=== PATIENT | female | born 1945 | race Caucasian/White ===

== ENCOUNTER 2019-12-19 20:48 | Inpatient (IN) | payer MEDICARE ==
[~2019-12-19] VITALS: Ht 167.6 cm; Wt 49.7 kg
[2019-12-19] MEDS ORDERED: ALBUTEROL2.5 MG/3 M INH (21:01)
[2019-12-19] MEDS ORDERED: PACERONE100 MG PO (21:02)
[2019-12-19] MEDS ORDERED: VALIUM10 MG PO (21:02)
[2019-12-19] MEDS ORDERED: FUROSEMIDE20 MG PO (21:02)
[2019-12-19] MEDS ORDERED: CARDIZEM60 MG PO (21:02)
[2019-12-19] MEDS ORDERED: PROTONIX40 MG PO (21:03)
[2019-12-19] MEDS ORDERED: DONEPEZIL HCL5 MG PO (21:03)
[2019-12-19] MEDS ORDERED: PEPCID40 MG PO (21:04)
[2019-12-19] MEDS ORDERED: PLAVIX75 MG PO (21:04)
[2019-12-19] MEDS ORDERED: RANEXA500 MG PO (21:04)
[2019-12-19] MEDS ORDERED: LIPITOR40 MG PO (21:04)
[2019-12-19] MEDS ORDERED: ULTRAM50 MG PO (21:05)
[2019-12-19 21:53] LABS: BASOPHILS 0.2 % (0-2); EOSINOPHILS 1.6 % (0-7); HEMATOCRIT 37.7 % (36.0-48.0); HEMOGLOBIN 12.2 g/dL (12-16); IMMATURE GRANULOCYTES 0.2 % (0-5); LYMPHOCYTES 8.1 % (15-50); MCH 30.7 pg (26.0-34.0); MCHC 32.4 g/dL (31.0-37.0); MEAN PLATELET VOLUME 10.2 fL (7.4-10.4); MONOCYTES 6.1 % (2-11); NEUTROPHILS 83.8 % (40-80); PLATELET COUNT 214 10x3/uL (130-400); RBC 3.97 10x6/uL (4.00-5.40); RDW 17.2 % (11.5-14.5); WBC 12.9 10x3/uL (4.8-10.8)
[2019-12-19 22:05] LABS: CALC OSMOLALITY 302 mosm/kg (275-300); CALCIUM 8.9 mg/dL (8.5-10.1); CARBON DIOXIDE 36.3 mmol/L (21.0-32.0); CHLORIDE - SERUM 104 mmol/L (98-107); GLUCOSE 99 mg/dL (74-106); SODIUM 148 mmol/L (136-145); UREA NITROGEN 37 mg/dL (7-18); eGFR NON AFRICAN AMERICAN 12 mL/min (90-120)
[2019-12-19 22:21] LABS: ALBUMIN 3.2 g/dL (3.4-5.0); ALKALINE PHOSPHATASE 74 U/L (30-120); ALT (SGPT) 15 U/L (10-68); BILIRUBIN - TOTAL 0.41 mg/dL (0.2-1.3); CKMB 1.2 U/L (0.0-3.6); CREATINE KINASE 79 UL (21-215); LIPASE 94 U/L (73-393); MAGNESIUM - SERUM 2.2 mg/dL (1.8-2.4); PROTEIN - SERUM 7.4 g/dL (6.4-8.2); THYROID STIMULATING HORMONE 2.41 uIU/mL (0.36-3.74)
[2019-12-19 22:22] LABS: TROPONIN-I < 0.017 ng/mL (0.000-0.060)
[2019-12-19 23:00] VITALS: BP 119/65
[2019-12-19 23:39] LABS: INR 0.86 (0.85-1.17); PROTIME 11.7 SECONDS (11.6-15.0)
[2019-12-19 23:52] LABS: APTT 22.1 SECONDS (22.8-39.4)
[2019-12-20 00:18] LABS: GLUCOSE NEGATIVE (NEGATIVE); KETONE NEGATIVE (NEGATIVE); NITRITE NEGATIVE (NEGATIVE); UROBILINOGEN NORMAL (NORMAL)
[2019-12-20 00:19] LABS: BILIRUBIN NEGATIVE (NEGATIVE)
[2019-12-20 00:21] LABS: BACTERIA MODERATE /hpf (NEGATIVE); EPITHELIAL CELLS 0-5 /hpf (0-5); HYALINE CAST 0-5 /lpf (NONE SEEN); RED CELLS - URINE 0-5 /hpf (0-5); WHITE CELLS - URINE 0-5 /hpf (NEGATIVE); YEAST <1+ /hpf (NONE SEEN)
[2019-12-20 00:29] LABS: UDS - AMPHET NEGATIVE QUAL (NEGATIVE); UDS - BARB NEGATIVE QUAL (NEGATIVE); UDS - BENZO POSITIVE QUAL (NEGATIVE); UDS - COCAINE NEGATIVE QUAL (NEGATIVE); UDS - OPIATE POSITIVE QUAL (NEGATIVE); UDS - PCP NEGATIVE QUAL (NEGATIVE); UDS - THC NEGATIVE QUAL (NEGATIVE)
--- NOTE | 2019-12-20 01:05 | NUR ---
ADMITTED BY WHEELCHAIT TO BED LOW AND LOCKED AND CALL LIGHT PROVIDED IV TO TKO
[2019-12-20 03:45] VITALS: BP 131/60
[2019-12-20 06:56] LABS: BASOPHILS 0.1 % (0-2); EOSINOPHILS 0.1 % (0-7); HEMATOCRIT 34.5 % (36.0-48.0); HEMOGLOBIN 10.8 g/dL (12-16); IMMATURE GRANULOCYTES 0.3 % (0-5); MCH 29.9 pg (26.0-34.0); MCHC 31.3 g/dL (31.0-37.0); MCV 95.6 fL (80.0-100.0); MONOCYTES 0.7 % (2-11); NEUTROPHILS 95.8 % (40-80); PLATELET COUNT 179 10x3/uL (130-400); RBC 3.61 10x6/uL (4.00-5.40); RDW 17.2 % (11.5-14.5); WBC 11.7 10x3/uL (4.8-10.8)
--- NOTE | 2019-12-20 07:00 | NUR ---
RECEIVED REPORT. ASSUMED CARE OF PATIENT. CALL LIGHT WITHIN REACH. PATIENT RESTING IN BED WITH EYES CLOSED, EASILY AROUSED. RESP EVEN AND UNLABORED. FMAILY AT BEDSIDE WITH EYES CLOSED. IV FLUIDS INFUSING ORDERED. NO DISTRESS. SR ON TELE, RATE 64.
[2019-12-20 07:09] LABS: ALBUMIN 2.6 g/dL (3.4-5.0); BILIRUBIN - TOTAL 0.31 mg/dL (0.2-1.3); CARBON DIOXIDE 35.3 mmol/L (21.0-32.0); CREATININE - SERUM 3.5 mg/dL (0.6-1.3); MAGNESIUM - SERUM 2.2 mg/dL (1.8-2.4); PHOSPHOROUS 5.9 mg/dL (2.5-4.9); PROTEIN - SERUM 6.2 g/dL (6.4-8.2)
[2019-12-20 07:14] LABS: ANION GAP 8.7 mmol/L (8-16)
[2019-12-20 09:31] VITALS: BP 110/56
--- NOTE | 2019-12-20 09:45 | NUR ---
PATIENT ASSISTED TO RESTROOM AND BACK TO BED. AMBULATED WITH ONE PERSON ASSIST. NO DISTRESS. CALL LIGHT WITHIN REACH. DAUGHTER AT BEDSIDE.
[2019-12-20 11:26] LABS: % SATURATION 18 % (15-55); IRON 41 ug/dl (35-150); TOTAL IRON BIND CAPACITY 227 ug/dl (260-445); UNSAT IRON BIND CAPACITY 186 ug/dl (150-375)
--- NOTE | 2019-12-20 11:46 | NUR ---
RT AT BEDSIDE FOR ABGs AT THIS TIME. NO DISTRESS.
[2019-12-20 13:26] VITALS: Ht 167.6 cm; Wt 49.7 kg
[2019-12-20 13:43] VITALS: BP 123/57
--- NOTE | 2019-12-20 14:35 | NUR ---
SPEECH AT BEDSIDE TO EVAL PATIENT.
--- NOTE | 2019-12-20 19:45 | NUR ---
ASSISTED UP TO RESTROOM PT WAS UNSTEADY ON FEET AND HAD POOR POSTURE BED LOW AND LOCKED CALL LIGHT IS WITH FAMILY
[2019-12-20 20:39] VITALS: BP 102/52
--- NOTE | 2019-12-20 22:57 | NUR ---
PT BEGIN SLAPPING ME WHEN I TRIED TO GIVE SOLUMEDROL IV ALSO SPITING OUT MEDS FAMILY SAID SHE GETS CONFUSED AND COMBATIVE IN THE HOSPITAL
[2019-12-21] VITALS: BP 147/66
--- NOTE | 2019-12-21 01:11 | NUR ---
PT PULLED IV OUT CATH INTACT AND GOT AGRESSIVE AND COMBATIVE WHEN I TRIED TO STOP BLEEDING AND CLEAN PT PT STATED YOU NEED TO GET MAD SOMETIMES I AM NOT ATTEMPTING A NEW SITE WHILE PT IS COMBATIVE
--- NOTE | 2019-12-21 01:41 | NUR ---
I have reviewed this patient and I concur with the Shift Assessment completed by the Licensed Practical Nurse today this shift.
--- NOTE | 2019-12-21 02:09 | NUR ---
PT NOW HAS REMOVED TELEMETRY AND TOSSED IT FAMILY IS REQUESTING A VALIUM BRITTANY BAKER NOTIFIED
[2019-12-21 06:48] LABS: BASOPHILS 0 % (0-2); EOSINOPHILS 0 % (0-7); HEMATOCRIT 33.6 % (36.0-48.0); HEMOGLOBIN 10.7 g/dL (12-16); IMMATURE GRANULOCYTES 0.2 % (0-5); LYMPHOCYTES 4.5 % (15-50); MCH 29.8 pg (26.0-34.0); MCHC 31.8 g/dL (31.0-37.0); MEAN PLATELET VOLUME 10.7 fL (7.4-10.4); MONOCYTES 3.4 % (2-11); NEUTROPHILS 91.9 % (40-80); PLATELET COUNT 186 10x3/uL (130-400); RBC 3.59 10x6/uL (4.00-5.40); RDW 16.8 % (11.5-14.5); WBC 9.1 10x3/uL (4.8-10.8)
[2019-12-21 07:15] LABS: MCV 93.6 fL (80.0-100.0)
[2019-12-21 07:25] LABS: ANION GAP 10.5 mmol/L (8-16); CARBON DIOXIDE 33.8 mmol/L (21.0-32.0); CREATININE - SERUM 3.2 mg/dL (0.6-1.3)
[2019-12-21 07:30] LABS: PHOSPHOROUS 3.7 mg/dL (2.5-4.9); POTASSIUM - SERUM 3.3 mmol/L (3.5-5.1)
--- NOTE | 2019-12-21 07:45 | NUR ---
AM ROUNDS COMPLETED. INTRODUCED MYSELF TO PT PRIMARY RN FOR TODAYS SHIFT. PT IS VERY CONFUSED. PT THINKS SHE IS IN [place] WHICH SHE DID JUST MOVE TO [place] THIS WEEK. HOWEVER DISORIENTED TO TIME AND SITUATION WELL. PT ALSO HAVING HALLUCINATIONS AND NOT SEEING CLEARLY. DAUGHTER AT BEDSIDE AND STATES SHE NORMALLY IS A&O X4 BUT JUST RECENTLY BECAME CONFUSED. PT APPARENTLY PULLED OFF TELEMETRY AND PIV LAST NIGHT AND IS REFUSING CARE. PT CURRENTLY NPO FOR XRAY BUT AFTERWARDS I WILL TRY TO GIVE HER ALL OF HER MORNING MEDICATIONS. RR NONLABORED AND VSS. NO IMMEDIATE NEEDS AT THIS TIME. CL IN REACH. WILL CTM.
[2019-12-21 08:00] VITALS: BP 140/72
--- NOTE | 2019-12-21 10:04 | NUR ---
PT LEAVING FOR XR UPPER GI VIA W/C. NO CURRENT NEEDS.
--- NOTE | 2019-12-21 11:03 | NUR ---
PT BACK FROM XRAY AND SITTING UP IN BED RESTING QUIETLY. RR NONLABORED WITH NC @3L IN PLACE. PT IS VERY SKEPTICAL AND NOT WANTING TO BE AT HOSPITAL OR FOLLOW COMMANDS. HOWEVER I WAS ABLE TO TALK PT INTO TAKING HER HEART MEDICATIONS. PT SWALLOWED WITHOUT ANY DIFFICULTIES, BIG PILLS HAD TO BE BROKE IN HALF. PT TOOK ONE BITE OF CEREAL AND THEN STATED "IM DONE, IM READY TO LEAVE" WILL TRY TO GET PT TO COOPERATE BUT ALLOW HER TO REFUSE SO SHE DOESNT GET MORE WORKED UP. NO IMMEDIATE NEEDS AT THIS TIME. CL IN REACH, BED IN LOWEST, SIDE RAILS X2. WILL CTM.
--- NOTE | 2019-12-21 11:14 | NUR ---
PT UP AMBULATING WITH THERAPY. SLOW STEADY GAIT WITH WALKER AND MIN ASSIST.
[2019-12-21 12:00] VITALS: BP 137/88
--- NOTE | 2019-12-21 12:31 | NUR ---
20 VENANCIO PIV INSERTED TO R.FA X1 STICK. PT IS BEING VERY KIND AND COOPERATIVE CURRENTLY. PT STILL CONFUSED BUT AT LEAST WORKING WITH US. PT TRYING TO EAT SOME LUNCH. NO CURRENT NEEDS. WILL CTM.
--- NOTE | 2019-12-21 18:30 | NUR ---
SPUTUM AND STOOL SPECIMEN NOT COLLECTED PT WAS UNABLE TO PROVIDE.
--- NOTE | 2019-12-21 19:15 | NUR ---
REPORT RECEIVED, WILL CONTINUE POC. PATIENT IS RESTING WITH EYES CLOSED. FAMILY AT BEDSIDE. NO S/S OF DISTRESS OBSERVED, RR EVEN AND UNLABORED ON 3L O2 VIA NC. NO NEEDS EXPRESSED AT THIS TIME. CL IN REACH, BED LOCKED AND LOWERED. WILL CTM.
[2019-12-21 20:00] VITALS: BP 116/61
--- NOTE | 2019-12-21 20:30 | NUR ---
BODY FORMER ASSISTED PATIENT TO BATHROOM, PULL UP CHANGED AND ASSISTED BACK TO BED.
--- NOTE | 2019-12-21 20:33 | NUR ---
OT NOTE: PT COMPLETED BED MOB TASKS WITH SBA. PT REQUIRED CUES FOR INCREASED PARTICIPATION. [id number] THANK YOU,DESTINEE HUDDLESTON
[2019-12-22] VITALS: BP 117/51
--- NOTE | 2019-12-22 00:03 | NUR ---
PATIENT ATTEMPTED TO PULL IV OUT SEVERAL TIMES AND BREAK HER ALLERGY BANDS. COMPROMISED TO REMOVE ONE IF SHE'D LEAVE HER IV ALONE. IT'S WORKED OF YET. PATIENT ALSO C/O OF DIARRHEA AND CONVINCED WE'RE TRYING TO "KILL" HER. ASSURED PATIENT THAT WE'RE HER TO DO THE OPPOSITE. FAMILY MEMEBER AT BEDSIDE HELPING KEEP PATIENT CALM. PROCERIC EDDY PER ORDERS.
--- NOTE | 2019-12-22 03:01 | NUR ---
PATIENT VERY AGITATED. PATTING ME DOWN AND TRYING TO TAKE THINGS OUT OF MY POCKETS. STILL CLAIMING WE'RE TRYING TO KILL HER. SISTER AT BEDSIDE SLEEPING. CHARGE NURSE TONY CAME IN TO ASSIST WITH CALMING PATIENT DOWN. PATIENT BACK IN BED. SUSPECT PIV WONT LAST TOO MUCH LONGER.
--- NOTE | 2019-12-22 03:38 | NUR ---
I have reviewed this patient and I concur with the Shift Assessment completed by the Licensed Practical Nurse today this shift.
[2019-12-22 04:00] VITALS: BP 120/64
--- NOTE | 2019-12-22 04:27 | NUR ---
PATIENT TOOK OFF O2 AND DROPPED INTO THE 70S, PERSUADED HER TO PUT IT BACK ON ON O2 CAME BACK UP WNL. PATIENT VERY ARGUMENTATIVE.
[2019-12-22 05:55] LABS: ANION GAP 9.2 mmol/L (8-16); CALCIUM 8.5 mg/dL (8.5-10.1); CARBON DIOXIDE 33.7 mmol/L (21.0-32.0); CREATININE - SERUM 2.5 mg/dL (0.6-1.3); MAGNESIUM - SERUM 2.2 mg/dL (1.8-2.4); PHOSPHOROUS 3.1 mg/dL (2.5-4.9)
[2019-12-22 05:56] LABS: POTASSIUM - SERUM 3.9 mmol/L (3.5-5.1)
[2019-12-22 05:59] LABS: BASOPHILS 0 % (0-2); EOSINOPHILS 0 % (0-7); HEMATOCRIT 34.5 % (36.0-48.0); HEMOGLOBIN 10.9 g/dL (12-16); IMMATURE GRANULOCYTES 0.2 % (0-5); LYMPHOCYTES 3.2 % (15-50); MCH 29.8 pg (26.0-34.0); MCHC 31.6 g/dL (31.0-37.0); MCV 94.3 fL (80.0-100.0); MEAN PLATELET VOLUME 11.3 fL (7.4-10.4); MONOCYTES 3.3 % (2-11); NEUTROPHILS 93.3 % (40-80); PLATELET COUNT 193 10x3/uL (130-400); RBC 3.66 10x6/uL (4.00-5.40); WBC 10.8 10x3/uL (4.8-10.8)
[2019-12-22 08:57] VITALS: BP 122/60
--- NOTE | 2019-12-22 11:42 | NUR ---
PT SITTING UP IN BED ALERT AND ORIENTED TO SELF. ALTAF BED ALARM IN PLACE. PT TEARFUL AND STATES SHE THINKS SHE IS BEING POISNED. FAMILY AT BEDSIDE. VSS. NO S/S OF DISTRESS. BED LOW CALL LIGHT WITHIN REACH. WILL CONTINUE TYO MONITOR
[2019-12-22 12:02] VITALS: BP 121/59
--- NOTE | 2019-12-22 14:49 | EC ---
PATIENT:MICHAEL ESPAÑA DATE OF SERVICE: 12/19/19 SEX: F MEDICAL RECORD: [id number] DATE OF : [birth year] LOCATION:D. D.211 AGE OF PATIENT: 74 ADMISSION DATE: 12/19/19 REFERRING PHYSICIAN: INTERPRETING PHYSICIAN: DAVID FARFAN MD ECHOCARDIOGRAM REPORT ECHO CHARGES 4 ECHO COMPLETE Date: 12/21/19 CLINICAL DIAGNOSIS: CHF ECHOCARDIOGRAPHIC MEASUREMENTS (adult normal given) AC root (d.<3.7cm) 2.2 cm LV Septum d (<1.2 cm> cm Valve Excursion 1.6 cm LV Septum (systole) cm Left Atria (s.<4.0cm> 2.7 cm LVPW d(<1.2cm) cm RV (d.<2.3cm) 2.7 cm LVPW (sytole) cm LV diastole(<5.6CM) cm MV E-F(>70mm/sec) cm LV systole cm LVOT Diameter 1.6 cm MV exc.(>10mm) cm Est.ejection fraction (50-75%) % DOPPLER: LVIT cm/sec A 69 cm/sec E 70 cm/sec LA cm/sec RVSP 24.9 mmHg LVOT 90 cm/sec AOP1/2T m/s Asc. Ao 144 cm/sec RVOT 87 cm/sec RA cm/sec PA 91 cm/sec AV Gradient Peak 8.3 mmHg AV Mean 3.5 mmHg AV Area 1.5 cm MV Gradient Peak 4.9 mmHg MV Mean 2.2 mmHg MV Area cm COMMENTS: Military Communications Specialist: Emilio SYLWIA SHEILA Release Manager: 1 Dr. Pereira TAPE# PACS Pericardial Effusion N DATE OF SERVICE: Adequate 2D, color flow imaging, spectral Doppler, and M-Mode Grossly, no LVH. LV internal dimension is normal. Wall motion is normal. EF is greater than or equal to 55%. Aortic valve is tricuspid. No evidence of stenosis by Doppler interrogation. Left atrium is normal. Mitral valve shows no prolapse. Mild MR. Right-sided chambers are grossly normal. Trace TR. TRANSINT:[id number] Voice Confirmation ID: [id number] DOCUMENT ID: [id number] ECHOCARDIOGRAM REPORT [id number] STACIEMICHAEL DYSON DAVID FARFAN MD at 1449 CC: [id number] DICTATION DATE: 12/21/19 1445 AGRICULTURAL ECONOMIST: 12/21/19 1511 ADM IN [facility] [address] [id number]
--- NOTE | 2019-12-22 17:00 | NUR ---
OT NOTE: PT EXTREMELY CONFUSED, AGITATED, AND PARANOID TODAY. PT OOB AMB IN ROOM WITH BLANKETS AROUND FEET AND ALMOST FALLING BEFORE THERAPIST GOT HER INTO WC TO SIT DOWN. PT ATTEMPTING TO SWING AT THERAPIST AND STATING THAT SHE HAS CALLED THE [employer] CREW. UNABLE TO EDUCATE PT REGARDING SAFETY, SHE IS TOO CONFUSED AT THIS TIME. ATTEMPTED TO PERFORM ADLS BUT PT REFUSING EVERYTHING. ATTEMPTED TO REDIRECT BUT SHE REMAINS AGITATED. BULMARO MILLER, OTR/L [phone]
--- NOTE | 2019-12-22 17:07 | NUR ---
OT NOTE: UPON ENTERING PT UP WANDERING AROUND ROOM. FELIPE ASSISTED PT BACK TO BED. PT REQUIRED SBA AND MOD VERBAL CUES FOR TASK [id number]. PT WASHED HAND AND FEET WITH SET UP. PT IS CONFUSED AND LACKS INSIGHT FOR SAFETY AWARENESS. NURSING AWARE. [phone] THANK YOU,DESTINEE HUDDLESTON
--- NOTE | 2019-12-22 18:09 | MORECARE ---
CASE MANAGEMENT DISCHARGE SUMMARY PATIENT: MICHAEL ESPAÑA UNIT: [id number] ADM DATE: 12/19/19 AGE: 74 : [birth year] SEX: F ROOM/BED: D.9213 AUTHOR: ELMO,DOC PHYSICIAN: REFERRING PHYSICIAN: MARIA DOLORES BARROSO MD DATE OF SERVICE: 12/22/19 Discharge Plan Patient Name: MICHAEL ESPAÑA Facility: [facility]:[place] : 1945 Planned Disposition: Inpatient Psych Facility Anticipated Discharge Date: 12/22/19 Discharge Date: Expected LOS: 3 Initial Reviewer: [email or web address] Initial Review Date: 12/22/2019 Generated: 12/22/19 7:08 pm Comments DCP- Discharge Planning Updated by [email or web address]: Issa Goldman on 12/22/19 5:[address] Patient Name: MICHAEL ESPAÑA Admission Status: ER Accout number: [id number] Admission Date: 12-19-2019 : 1945 Admission Diagnosis: Attending: MARIA DOLORES BARROSO Current LOS: 3 Anticipated DC Date: 12-22-2019 Planned Disposition: Inpatient Psych Facility Primary Insurance: MEDICARE A & B PLANNED EXTERNAL PROVIDER: [facility] Discharge Planning Comments: CM MET WITH PT'S DAUGHTER, RENETTA LEBLANC AT NURSES STATION; PT'S NURSE REPORTS PT TO BE UNCOOPERATIVE AND COMBATIVE. PT LIVING AT HOME DEPENDENTLY WITH ADULT DAUGHTER WHO ASSIST WITH MEDICATIONS, PT IS INDEPENDENT WITH ALL OTHER CARE AT HOME. PT HAS BEDSIDE COMMODE, NEBULIZER, HOME AND PORTABLE OXGYEN FROM OUT OF STATE PROVIDER IN [place]. PT HAS NO OUTSIDE SERVICES ASSISTING IN THE HOME. CM DISCUSSED AVAILABILITY OF HOME HEALTH, REHAB SERVICES AND MEDICAL EQUIPMENT WELL HALFWAY; PT'S DAUGHTER REPORTS PT IS COMBATIVE AND THIS IS NOT USUAL FOR PT. THEY ARE IN AGREEMENT WITH ADMISSION TO HALFWAY AND UNDERSTAND THIS TO BE A LOCKED INPATIENT PSYCHIATRIC UNIT. IMPORTANT MESSAGE FROM MEDICARE PROVIDED AND EXPLAINED. FAMILY HANDED OFF BY CM TO BEDSIDE NURSE. PT ACCEPTED AND ADMITTED TO HALFWAY AT [place]. Rivet Hole Machine Operator: Issa Goldman DCPIA - Discharge Planning Initial Assessment Updated by [email or web address]: Issa Goldman on 12/22/19 6:02 pm * Is the patient Alert and Oriented? Yes * How many steps to enter\exit or inside your home? NONE * PCP NONE * Pharmacy NONE * Preadmission Environment Home with Family * ADLs Partial Dependent * Partial ADLs (Assistance needed) Medication Management * Equipment Bedside Commode Nebulizer Other * Other Equipment HOME AND PORTABLE OXYGEN - OUT OF [facility] PROVIDER IN [place] * List name and contact numbers for known caregivers / representatives who currently or will assist patient after discharge: RENETTA LEBLANC, DTR, * Verbal permission to speak to the caregivers and representatives has been obtained from the patient. N/A * Community resources currently utilized None * Please name any agencies selected above. NONE * Additional services required to return to the preadmission environment? No * Can the patient safely return to the preadmission environment? Yes * Has this patient been hospitalized within the prior 30 days at any hospital? Yes Coverage Notice Reviewer: [email or web address] Parvin Goldman Notice Issued Date-Time: 12/22/2019 16:30 Notice Type: IM Discharge Notice Notice Delivered To: Family Member Relationship to Patient: Daughter Stem Dryer Maintainer Name: RENETTA LEBLANC Delivery Method: HAND - Hand Delivered Analy Days: Prior Verbal Notification: Recipient Understood Notice: Yes Recipient Signature: Yes Med Rec Note Co-signed by Attending: Coverage Notice Comment: Patient Name: MICHAEL ESPAÑA Page [phone] at 1809 All edits/amendments must be made on the electronic document DICTATION DATE: 12/22/191807 WELDER APPRENTICE GAS: ISREAL 12/22/191807 RPT#: [id number] DC DATE: STATUS: ADM IN [facility] [address] [place] [address] END OF REPORT
--- NOTE | 2019-12-22 18:16 | NUR ---
PT DC'D TO ASSISTED WITH IV DC'D. PT ALERT BUT CONFUSED X4. NO S/S OF DISTRESS AT THIS TIME. VSS.
== END 2019-12-22 18:19 | disposition short-term general hospital (02) | DRG 190 ==
LOC: D.ER 20:48 → D.M2 23:54
PROVIDERS: Family Medicine; ADMIT Internal Medicine Nephrology; ATTEND Internal Medicine Nephrology
DX: J44.1 Chronic obstructive pulmonary disease with (acute) exacerbation (principal); J96.22 Acute and chronic respiratory failure with hypercapnia; G92 Toxic encephalopathy; J96.21 Acute and chronic respiratory failure with hypoxia; N17.9 Acute kidney failure, unspecified; E87.0 Hyperosmolality and hypernatremia; N39.0 Urinary tract infection, site not specified; E46 Unspecified protein-calorie malnutrition; Z68.1 Body mass index [BMI] 19.9 or less, adult; D64.9 Anemia, unspecified; I10 Essential (primary) hypertension; E78.5 Hyperlipidemia, unspecified; I48.91 Unspecified atrial fibrillation; I25.10 Atherosclerotic heart disease of native coronary artery without angina pectoris

== ENCOUNTER 2019-12-22 18:28 | Inpatient (IN) | payer MEDICARE ==
[~2019-12-22] VITALS: Ht 167.6 cm; Wt 47.2 kg
[~2019-12-22 18:28] MED LIST: ALBUTEROL2.5 MG/3 M INH; CARDIZEM60 MG PO; DONEPEZIL HCL5 MG PO; FUROSEMIDE20 MG PO; LIPITOR40 MG PO; PACERONE100 MG PO; PEPCID40 MG PO; PLAVIX75 MG PO; PROTONIX40 MG PO; RANEXA500 MG PO; ULTRAM50 MG PO; VALIUM10 MG PO
--- NOTE | 2019-12-23 00:34 | NUR ---
PATIENT ARRIVED AT 18:15, CODE WORD IS '0484', CODE STATUS IS DNR. PATIENT IS AMBULATORY, O2 AT 2 LITERS VIA NC, PATIENT CAME FROM MED II, PATIENT IS CONFUSED AND ARGUMENTIVE WITH STAFF, HALLUCINATIONS SEEING CHILDREN, PHYSICIAN AND FAMILY AWARE OF ARRIVAL. WILL CONTINUE TO MONITOR.
[2019-12-23 02:03] VITALS: BP 139/71; BMI 16.8
[2019-12-23 06:21] LABS: BASOPHILS 0 % (0-2); EOSINOPHILS 0 % (0-7); HEMATOCRIT 31.6 % (36.0-48.0); HEMOGLOBIN 10.1 g/dL (12-16); IMMATURE GRANULOCYTES 0.3 % (0-5); LYMPHOCYTES 6.2 % (15-50); MCV 93.8 fL (80.0-100.0); MEAN PLATELET VOLUME 10.6 fL (7.4-10.4); MONOCYTES 10.4 % (2-11); NEUTROPHILS 83.1 % (40-80); PLATELET COUNT 172 10x3/uL (130-400); RBC 3.37 10x6/uL (4.00-5.40); RDW 16.8 % (11.5-14.5); WBC 10.5 10x3/uL (4.8-10.8)
[2019-12-23 07:06] LABS: ALBUMIN 2.7 g/dL (3.4-5.0); ANION GAP 7.2 mmol/L (8-16); BILIRUBIN - TOTAL 0.31 mg/dL (0.2-1.3); CALCIUM 8.2 mg/dL (8.5-10.1); CARBON DIOXIDE 33.6 mmol/L (21.0-32.0); CHOL - HDL RATIO 2.3 ratio (2.3-4.1); LDL-HDL RATIO 0.9 ratio (1.5-3.5); POTASSIUM - SERUM 3.8 mmol/L (3.5-5.1); PROTEIN - SERUM 5.7 g/dL (6.4-8.2); THYROID STIMULATING HORMONE 1.56 uIU/mL (0.36-3.74)
--- NOTE | 2019-12-23 10:28 | NUR ---
The patient is awake she is oriented to person, she has poor insight into her situation. She has not shown any hallucinations or aggression this am. She did not sleep well last night and she did not want to get up this am. Provide prescribed meds. The patient is compliant with her meds this am. Monitor her behaviors. Continue POC.
[2019-12-23 13:14] VITALS: Ht 167.6 cm; Wt 47.2 kg
[2019-12-23 13:22] LABS: BACTERIA FEW /hpf (NEGATIVE); BILIRUBIN NEGATIVE (NEGATIVE); EPITHELIAL CELLS 0-5 /hpf (0-5); GLUCOSE NEGATIVE (NEGATIVE); KETONE SMALL mg/dL (NEGATIVE); NITRITE NEGATIVE (NEGATIVE); RED CELLS - URINE 0-5 /hpf (0-5); SPECIFIC GRAVITY 1.005 (1.005-1.020); UROBILINOGEN NORMAL (NORMAL); WHITE CELLS - URINE OCC /hpf (NEGATIVE); YEAST >1+ /hpf (NONE SEEN)
--- NOTE | 2019-12-23 15:50 | NUR ---
SW DISCUSSED UNIT ORIENTATION AND PT'S BEHAVIORS WITH PT'S DTR, RENETTA. RENETTA WANTED TO PULL PT FROM THE UNIT STATING SHE WAS UNCOMFORTABLE NOT BEING ABLE TO SEE HER MOM WHEN SHE WANTS TO. SW DISCUSSED DEMENTIA, POSSIBLE CONTRIBUTIONS TO PT'S SYMPTOMS, AND ANSWERED ANY QUESTIONS ASKED. BY THE END OF THE CONVERSATION RENETTA AGREED TO KEEP PT ON UNIT AND RE EVALUATE SITUATION THURSDAY.
--- NOTE | 2019-12-23 15:56 | NUR ---
PT C/O OF NAUSEA. NURSE Zoe MAC ADMINISTERED ZOFRAN [address] ORDER. PT REFUSED TO EAT LUNCH PT DID NOT C/O OF NAUSEA AT THAT TIME. ENSURE GIVEN A SUPPLEMENT.
[2019-12-23 20:06] VITALS: BP 121/61
--- NOTE | 2019-12-24 00:44 | NUR ---
B.) PT IS ALERT AND ORIENTED TO SELF AND SITUATION. SHE IS RECEIVED IN THE DAYROOM. SHE HAS HER HEAD COVERED WITH A BLANKET. SHE USES O2 VIA NC AT 2L. SHE IS CALM AND COOPERATIVE WITH STAFF. STATES THAT SHE IS PARANOID THAT SHE WILL NOT HAVE CLOTHES FOR TOMORROW. I.) PROVIDED PM MEDICATIONS. REDIRECT OFTEN. R.) COMPLIANT WITH ALL MEDICATIONS. EASY TO REDIRECT. P.) WILL CONTINUE TO MONITOR.
[2019-12-24 05:09] LABS: RAPID PLASMA REAGIN Non Reactive (Non Reactive)
--- NOTE | 2019-12-24 13:53 | PSY ---
PATIENT NAME:MAYRA ESPAÑA MEDICAL RECORD: [id number] : 49 LOCATION:[facility] ADMISSION DATE: 12/22/19 ACCOUNT: [id number] PSYCHIATRIC EVALUATION DATE OF EVALUATION: 12/23/19 IDENTIFYING DATA: Ms. Mayra España is a 74-year-old female who appears about her stated age. She was admitted to half-way from [facility] unit. CHIEF COMPLAINT: The patient was confused and agitated, delusional and aggressive. HISTORY OF PRESENT ILLNESS: She is a 74-year-old female that was living at home with her daughter who is her 24-hour caregiver who became increasingly combative and increasingly confused and appeared to have hallucinations and was delusional. The patient had been admitted to the medical unit with a complaint of pneumonia and abdominal pain. She was admitted to the ER. During her hospital stay on the medical unit, she has been delusional, agitated, and aggressive. She was cursing and threatening to staff and had been increasingly agitated and aggressive with her daughter at home. PAST MEDICAL HISTORY: Fyzbr-pl-[id number] respiratory failure with hypoxia, COPD. She also has had normocytic anemia, hypertension, hyperlipidemia, atrial fib. She has CAD status post stent placement and moderate malnutrition. PAST PSYCHIATRIC HISTORY: The patient is a poor historian, unable to identify. FAMILY HISTORY: Unknown. ALLERGIES: INCLUDE PENICILLIN, PHENOBARBITAL, PROMETHAZINE, AND CHLOROPROMETHAZINE. MEDICATIONS: Include Zofran, folic acid, vitamin D, Xopenex p.r.n., Pulmicort, Vibramycin, Pepcid, Plavix, Cordarone, Protonix, Lasix, Valium, Ranexa, Cardizem, Lipitor, and Aricept. SOCIAL HISTORY: The patient appears to have relocated here from [place]. She is living with her daughter in her daughter's home and her daughter is her 24-hour caregiver. Daughter reports that the patient has had a history of alcohol abuse for several years, ranging from 1-2 beers to 7-8 beers per day depending on her mood. On 11/14/2019 was reported to be her last drink. The patient has been for 20+ years. She has 1 child. 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 It is reported that prior to surgery, she had some confusion, but it has been exasperated since the surgery per the daughter. MENTAL STATUS EXAMINATION: GENERAL: The patient is alert and oriented. She is sitting in a chair and she is easily agitated. She is oriented to person, in and out with place and time and situation. Her speech is soft, low tone, low volume but her mood is labile. Her associations are loose. Her eye contact was good. Her judgment is impaired. Her focus and concentration are distracted. Her mood is depressed and anxious and easily agitated. Her affect is flat narrow in range. Her anxiety is moderate. The patient has a poor memory for both recent and remote events. The patient does not appear to be attending to any visual or auditory hallucinations. Her judgment and insight are poor. ASSESSMENT: AXIS I: Neurocognitive disorder, major depression, alcohol use disorder, generalized anxiety disorder. AXIS II: Personality disorder deferred. AXIS III: GERD. Include COPD, UTI, normocytic anemia, vitamin D deficiency, hyperlipidemia, coronary artery disease, atrial fibrillation. CVA, status post coronary artery stent placement, hypertension, vascular dementia, chronic kidney disease. AXIS IV: Stresses include readjustment family, social, and environmental. PLAN: She was admitted yesterday 12/22/2019 to the unit for a comprehensive medical, psychological, and social evaluation. She will be treated with a medication base to help with her mood, thought, and behaviors. We will prepare the patient for discharge with the goal to decrease her agitation, impulsivity, and stabilize her mood. Dictated By: Yasmin Xavier APN I have interviewed/examined the above patient and agree with these documented findings. TRANSINT:[id number] Voice Confirmation ID: [id number] DOCUMENT ID: [id number] Dictated By: YASMIN XAVIER I have interviewed/examined the above patient and agree with these documented findings. VLAD CREPSO MD at 1658 at 1353 CC: [id number] DICTATION DATE: 12/23/19 1759 WIRELESS TECHNICIAN: 12/23/[address] [facility] [address] [place] [address]
--- NOTE | 2019-12-24 16:00 | NUR ---
The patient was looking at one of the female patient's and telling her she was going to "Whip her butt." She is making statements that she wants to fight with the other patient. The other patient said "I don't even know you." The patient said "I oughtta beat your ass, we've known each other for years." Removed the patient away from view if the one she was yelling at.
--- NOTE | 2019-12-24 16:07 | NUR ---
The patient is awake and she is upset. She said she wants to go home. Explained to her that ok she is able. She would not talk to me, she let me assess her and then she said for me to get away she is mad and she would not say why. She took her oxygen off and she refuses to put it back on. Provide prescribed meds. The patient is compliant with meds. Continue POC.
--- NOTE | 2019-12-24 16:35 | NUR ---
The patient is crying and upset she talked to her daughter and asked her to take her home. The daughter said "Ok." Yasmin Xavier APN discharged the patient AMA to home. Belongings sent with the patient. The patient is discharged off of [facility].
--- NOTE | 2019-12-25 16:58 | PN ---
PATIENT:MICHAEL ESPAÑA MEDICAL RECORD: [id number] LOCATION:J[facility]I [facility] ADMISSION DATE: 12/22/19 PROGRESS NOTE DATE OF SERVICE: 12/24/2019 SUBJECTIVE: Case was reviewed with staff. The patient is sitting quietly in a chair and she states that she does not want to talk. She does not feel too agitated, but she can get very mad. The patient also reports it seems like she has been here forever. OBJECTIVE: The patient has been noncompliant with her oxygen. The patient also has not been eating. She did sleep 6.25 hours last night. Her general appearance is slightly disheveled. Her orientation, she is alert to person, disoriented to time and situation. Her speech is soft, low tone, low volume. Her associations are loose. Her eye contact is fair. Her insight is impaired. Her mood is depressed. Her affect is flat and narrow in range. Her anxiety is mild to moderate. The patient has problems with memory for both recent and remote events. The patient does not appear to be attending to visual, auditory hallucinations. Judgment and insight, patient is impulsive. ASSESSMENT: No change. PLAN: Treatment plan was reviewed. Goals were reviewed. We will continue to monitor the patient's dietary intake. We will also monitor her sleep and her level of confusion and her mood stability. Goal will be to also keep the patient safe. Dictated By: Yasmin Xavier APN I have interviewed/examined the above patient and agree with these documented findings. TRANSINT:[id number] Voice Confirmation ID: [id number] DOCUMENT ID: [id number] VLAD CRESPO MD at 1658 at 1717 CC: [id number] DICTATION DATE: 12/24/19 1444 FILAMENT CUTTER: 12/24/19 2211 DIS IN 12/24/19 [facility] [address] [place] [address]
--- NOTE | 2019-12-25 16:58 | CN ---
PATIENT NAME:MICHAEL ESPAÑA MEDICAL RECORD: [id number] : 49 LOCATION:[id number] ADMIT DATE: 12/22/19 ACCOUNT: [id number] CONSULTING PHYSICIAN: VLAD CRESPO MD REFERRING PHYSICIAN: VLAD CRESPO MD DATE OF CONSULTATION: 12/22/2019 IDENTIFYING DATA: The patient is [id number] and she currently is admitted to the hospital secondary to multiple medical issues. CHIEF COMPLAINT: Aggression. HISTORY OF PRESENT ILLNESS: The patient is here because of pneumonia apparently has been sufficiently treated such that she could ordinarily be discharged. Unfortunately, she has been delusional, agitated, and aggressive. She has been cursing and threatening staff. She is not really interviewable and clearly is quite impaired. Apparently, she recently moved here from [place] and had been hospitalized there. Her daughter is not at hospital at this time; however, the nurse who has been with her all day was able to provide a lot of information about her agitation. She does have a history of dementia. ASSESSMENT: Senile dementia of the Alzheimer's type with behavioral disturbances. PLAN: The patient may be transferred to inpatient behavioral unit once medically stabilized. She is currently in need of medication management for her agitative behavior. TRANSINT:[id number] Voice Confirmation ID: [id number] DOCUMENT ID: [id number] VLAD CRESPO MD at 1658 CC: [id number] DICTATION DATE: 12/22/19 1708 EMAIL MARKETER: 12/23/19 0048 DIS IN 12/24/[id number] [place] [address]
--- NOTE | 2019-12-27 15:04 | DS ---
PATIENT:MICHAEL ESPAÑA :49 MEDICAL RECORD: [id number] DISCHARGE SUMMARY ADMISSION DATE: 12/22/19 DISCHARGE DATE: 12/24/19 IDENTIFYING DATA: The patient is 74 years old and she was admitted to the hospital on a voluntary basis. CHIEF COMPLAINT: Aggression. HISTORY OF PRESENT ILLNESS: The patient had initially been admitted to the hospital because of pneumonia. She had been adequately treated for the pneumonia and was scheduled to be discharged: At the time of her discharge, she was agitated, aggressive, delusional and had cursed and threatened staff. She was impaired and not cooperative. She was subsequently transferred to the behavioral unit for evaluation and treatment. HOSPITAL COURSE: The patient was admitted to the behavioral unit and comprehensively evaluated from both a medical, psychological, and social standpoint. She was found to have an advanced dementia and a history of alcohol abuse and a depressive illness. She was started on her home medications and some minor adjustments were made over the day and a half that she was on the behavioral unit. Her daughter came on Thursday to visit with her and wanted to take her home and the patient wanted to go home. At that time, the patient was not out of control and was not suicidal or homicidal. The patient needed to be in the hospital to have ongoing evaluation and treatment of the symptoms that brought her here, symptoms that at times may be potentially dangerous. The patient, however, at the time that her daughter was here, was not having any evidence of symptoms that would require a court order that is to say she did not meet criteria for an involuntary stay and she was subsequently discharged against medical advice. DISCHARGE DIAGNOSES: AXIS I: 1. 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 2. History of alcohol abuse. 3. Generalized anxiety disorder. 4. Rule out major depression. AXIS II: Deferred. AXIS III: Gastroesophageal reflux disease, chronic obstructive pulmonary disease, urinary tract infection, normocytic anemia, vitamin D deficiency, hyperlipidemia, coronary artery disease, atrial fibrillation, stroke, status post coronary artery stent placement, hypertension, chronic kidney disease. AXIS IV: Moderate stressors. AXIS V: Global assessment of functioning was 30. PLAN: The patient was discharged against medical advice. Followup will be arranged by the patient and her daughter. She may return to the Emergency Room or call the behavioral unit if there are problems in managing her and I will be happy to readmit her and continue the evaluation and treatment. Her treatment and evaluation was not completed, she was discharged against medical advice and that was only done because I could not find criteria under which I could hold her against her will, on an involuntary basis. Specifically, dementia is an exclusionary criteria for the commitment proceedings. She was not suicidal, homicidal, or gravely disabled outside of needing the supervision that all dementia patients need and her daughter was willing to provide that. DISCHARGE SUMMARY REPORT [id number] MICHAEL ESPAÑA TRANSINT:[id number] Voice Confirmation ID: [id number] DOCUMENT ID: [id number] VLAD CRESPO MD at [id number] CC: [id number] DICTATION DATE: 12/26/19 1650 RN FORENSIC: 12/27/19 0806 DIS IN 12/24/19 [id number] [place] [address]
== END 2019-12-24 16:35 | disposition left against medical advice (07) | DRG 57 ==
LOC: D.PSYCH 18:28
PROVIDERS: ADMIT Psychiatry & Neurology Psychiatry; ATTEND Psychiatry & Neurology Psychiatry
DX: G30.1 Alzheimer's disease with late onset (principal); F02.81 Dementia in other diseases classified elsewhere, unspecified severity, with behavioral disturbance; N39.0 Urinary tract infection, site not specified; J44.9 Chronic obstructive pulmonary disease, unspecified; D64.9 Anemia, unspecified; E55.9 Vitamin D deficiency, unspecified; E78.5 Hyperlipidemia, unspecified; I25.10 Atherosclerotic heart disease of native coronary artery without angina pectoris; I48.91 Unspecified atrial fibrillation; K21.9 Gastro-esophageal reflux disease without esophagitis; I12.9 Hypertensive chronic kidney disease with stage 1 through stage 4 chronic kidney disease, or unspecified chronic kidney disease; N18.3 Chronic kidney disease, stage 3 (moderate); I69.319 Unspecified symptoms and signs involving cognitive functions following cerebral infarction; Z91.19 Patient's noncompliance with other medical treatment and regimen